=== PATIENT | female | born 1970 | race Caucasian/White ===

== ENCOUNTER 2017-09-30 10:12 | Day surgery (SDC) | payer OTHER ==
[~2017-09-30] VITALS: Ht 170.2 cm; Wt 113.4 kg
[~2017-09-30 10:12] MED LIST: VICOPROFEN1 TABLET PO; WELLBUTRIN XL300 MG PO; ZOFRAN4 MG PO; ZOLOFT25 MG PO
[2017-09-30] MEDS ORDERED: PERCOCET 5/31 TABLET PO (10:42)
[2017-09-30] MEDS ORDERED: PROMETHAZINE HC25 M1 PO (10:43)
[2017-09-30 10:44] VITALS: BP 128/56
[2017-09-30 15:44] VITALS: BP 169/80
[2017-09-30 16:30] VITALS: BP 134/74
== END 2017-09-30 16:40 | disposition home or self-care (01) ==
LOC: SDC 10:12
PROC: 0JBR0ZZ Excision of Left Foot Subcutaneous Tissue and Fascia, Open Approach (ICD-10-PCS; principal; 2017-09-30)
PROC: 0L8T0ZZ Division of Left Ankle Tendon, Open Approach (ICD-10-PCS; 2017-09-30)
DX: M67.02 Short Achilles tendon (acquired), left ankle (principal); M72.2 Plantar fascial fibromatosis; M24.572 Contracture, left ankle; Z87.891 Personal history of nicotine dependence
CPT/HCPCS: J0330; J0690; J1100; J1170; J1885; J2405; J2550; J2765; J3010; Q0175; S0020